=== PATIENT | male | born 1980 | race Caucasian/White ===

== ENCOUNTER 2017-06-04 13:46 | Emergency (ER) | payer OTHER ==
[2017-06-04 14:17] VITALS: BP 118/75
[2017-06-04] MEDS ORDERED: Penicillin VK TAB* 250 MG PO ONE (14:57)
--- NOTE | 2017-06-04 15:21 | UC ---
UC Dental HPI - HPI Summary HPI Summary: 36 yo male with a 2 day hx of dental pain and swelling no f/c good pain control with ibuprofen - History of Current Complaint Chief Complaint: UCDentalProblem Stated Complaint: DENTAL PAIN Time Seen by Provider: 06/04/17 14:47 Hx Obtained From: Patient Onset/Duration: Gradual Onset, Lasting Hours Severity: Moderate Pain Intensity: 4 Pain Scale Used: 0-10 Numeric Aggravating: Heat, Cold, Chewing Alleviating: OTC Meds Related History: Previous Dental Care on Same Tooth, Swelling - Allergies/Home Medications Allergies/Adverse Reactions: Allergies Allergy/AdvReac Type Severity Reaction Status Date / Time Nickel Allergy Rash Verified 06/04/17 14:13 PMH/Surg Hx/FS Hx/Imm Hx Previously Healthy: Yes - Surgical History Surgical History: None - Family History Known Family History: Positive: Diabetes, Other - CA - Social History Alcohol Use: Occasionally Substance Use Type: None Smoking Status (MU): Heavy Every Day Tobacco Smoker Type: Cigarettes Amount Used/How Often: 1/2 - 1 PPD Review of Systems Constitutional: Negative Skin: Negative Eyes: Negative ENT: Dental Pain Respiratory: Negative Cardiovascular: Negative Gastrointestinal: Negative Genitourinary: Negative Motor: Negative Neurovascular: Negative Musculoskeletal: Negative Neurological: Negative Psychological: Negative All Other Systems Reviewed And Are Negative: Yes Physical Exam Triage Information Reviewed: Yes Appearance: Well-Appearing, No Pain Distress, Well-Nourished Vital Signs: Initial Vital Signs Temp 97.7 F 06/04/17 14:14 Pulse 71 06/04/17 14:14 Resp 16 06/04/17 14:14 BP 118/75 06/04/17 14:14 Pulse Ox 100 06/04/17 14:14 Vital Signs Reviewed: Yes Eyes: Positive: Conjunctiva Clear ENT: Positive: Hearing grossly normal. Negative: Nasal congestion, Nasal drainage, Tonsillar exudate, Trismus, Muffled/hoarse voice Neck: Positive: Supple, Nontender, No Lymphadenopathy Respiratory: Positive: Lungs clear, Normal breath sounds, No respiratory distress Cardiovascular: Positive: RRR, No Murmur Abdomen Description: Positive: Nontender, No Organomegaly. Negative: CVA Tenderness (R), CVA Tenderness (L) Musculoskeletal: Positive: ROM Intact, No Edema Neurological: Positive: Alert Psychological Exam: Normal Skin Exam: Normal Dental Complaint Course/Dx - Differential Dx/Diagnosis Provider Diagnoses: dental abscess Discharge - Discharge Plan Condition: Stable Disposition: HOME Prescriptions: Penicillin VK 500 MG TAB(NF) [Penicillin VK 500 mg Tab] 500 mg PO QID #28 tab Patient Education Materials: Dental Abscess (ED) Referrals: Karen WELLS,Greg Osei [Physician [employer]] - Additional Instructions: continue ibuprofen see dentist tomorrow as planned Images Dental: 1 - tender/swollen
== END 2017-06-04 15:15 | disposition home or self-care (01) ==
LOC: UCCORT 13:46
DX: K04.7 Periapical abscess without sinus (principal); F17.210 Nicotine dependence, cigarettes, uncomplicated
CPT/HCPCS: 99212; A9270-GY; G0463

== ENCOUNTER 2018-03-24 09:45 | Emergency (ER) | payer OTHER ==
[2018-03-24 10:01] VITALS: BP 140/66
--- NOTE | 2018-03-24 10:24 | UC ---
Throat Pain/Nasal [place] HPI - HPI Summary HPI Summary: Throat discomfort for about 10 days or so. Right in the middle of this he was on augmentin for diverticulitis. No fevers or congestion or cough. he is a smoker. - History of Current Complaint Chief Complaint: UCGeneralIllness Stated Complaint: THROAT COMP Time Seen by Provider: 03/24/18 10:12 Hx Obtained From: Patient Onset/Duration: Gradual Onset, Lasting Weeks Severity: Moderate Pain Intensity: 2 Cough: None Associated Signs & Symptoms: Positive: Dysphagia, FB Sensation. Negative: Hoarseness, Sinus Discomfort, Nasal Discharge, Fever, Vomiting, Rash Related History: Smoking - Epiglottits Risk Factors Epiglottis Risk Factors: Negative - Allergies/Home Medications Allergies/Adverse Reactions: Allergies Allergy/AdvReac Type Severity Reaction Status Date / Time nickel Allergy Rash Verified 03/24/18 09:59 PMH/Surg Hx/FS Hx/Imm Hx Previously Healthy: No - smoker. - Surgical History Surgical History: None - Family History Known Family History: Positive: Diabetes, Other - CA - Social History Occupation: Employed Full-time Alcohol Use: Rare Substance Use Type: None Smoking Status (MU): Heavy Every Day Tobacco Smoker Type: Cigarettes Amount Used/How Often: 1/2 - 1 PPD Review of Systems ENT: Sore Throat All Other Systems Reviewed And Are Negative: Yes Physical Exam Triage Information Reviewed: Yes Appearance: Well-Appearing, No Pain Distress, Well-Nourished Vital Signs: Initial Vital Signs Temp 97.7 F 03/24/18 09:56 Pulse 63 03/24/18 09:56 Resp 16 03/24/18 09:56 BP 140/66 03/24/18 09:56 Pulse Ox 98 03/24/18 09:56 Vital Signs Reviewed: Yes Eyes: Positive: Conjunctiva Clear, Conjunctiva Inflamed ENT: Positive: Normal ENT inspection, Pharynx normal, Pharyngeal erythema, TMs normal, Uvula midline. Negative: Nasal congestion, TM bulging, TM dull, TM red , Tonsillar swelling, Tonsillar exudate, Trismus, Muffled voice, Hoarse voice, Dental tenderness, Sinus tenderness Neck: Positive: Supple, Nontender, No Lymphadenopathy. Negative: Nuchal Rigidity Respiratory Exam: Other Respiratory: Positive: Lungs clear, Normal breath sounds, No respiratory distress, No accessory muscle use. Negative: Respiratory distress, Decreased breath sounds, Accessory muscle use, Crackles, Rhonchi, Stridor Cardiovascular: Positive: No Murmur, Pulses Normal, Brisk Capillary Refill Abdomen Description: Positive: No Organomegaly, Soft. Negative: Distended, Guarding Musculoskeletal: Positive: Strength Intact, ROM Intact, No Edema Neurological: Positive: Alert, Muscle Tone Normal. Negative: Fatigued Psychological: Positive: Age Appropriate Behavior Skin: Positive: rashes Throat Pain/Nasal Course/Dx - Differential Dx/Diagnosis Provider Diagnoses: sore throat Discharge - Sign-Out/Discharge Documenting (check all that apply): Discharge/Admit/Transfer - Discharge Plan Condition: Good Disposition: HOME Prescriptions: Dexamethasone TAB* [Decadron TAB*] 8 mg PO DAILY #6 tab Patient Education Materials: Pharyngitis (ED) Referrals: Myron Perez PA [Primary Care Provider] - - Billing Disposition and Condition Condition: GOOD Disposition: HOME
== END 2018-03-24 10:25 | disposition home or self-care (01) ==
LOC: UCCORT 09:45
DX: J02.9 Acute pharyngitis, unspecified (principal); F17.210 Nicotine dependence, cigarettes, uncomplicated; Z91.048 Other nonmedicinal substance allergy status
CPT/HCPCS: 99212; G0463

== ENCOUNTER 2019-11-28 10:41 | Emergency (ER) | payer OTHER ==
[2019-11-28 12:02] VITALS: BP 134/66
--- NOTE | 2019-11-28 13:16 | UC ---
Knee Pain HPI - HPI Summary HPI Summary: 39-year-old male comes in with a chief complaint of right knee pain. 4 days ago patient made a quick twist and turn move on his right knee while weightbearing and he felt a pop and pain. He's had pain since then although the pain has decreased over time. He's had another episode where it did make a pop and he squatted down. Denies any laxity. Every once while he feels a click in the knee. He's been the ibuprofen which does help with the pain. - History of Current Complaint Chief Complaint: UCLowerExtremity Stated Complaint: RIGHT KNEE INJURY Time Seen by Provider: 11/28/19 13:15 Pain Intensity: 2 - Allergies/Home Medications Allergies/Adverse Reactions: Allergies Allergy/AdvReac Type Severity Reaction Status Date / Time nickel Allergy Rash Verified 11/28/19 11:57 Home Medications: Home Medications Ciprofloxacin TAB* [Cipro 500 MG TAB*] 500 mg PO BID 11/28/19 [History Confirmed 11/28/19] Ibuprofen TAB* [Motrin TAB* 600 MG] 600 mg PO Q6H PRN 11/28/19 [History Confirmed 11/28/19] metroNIDAZOLE * [Flagyl] 500 mg PO Q8H 11/28/19 [History Confirmed 11/28/19] PMH/Surg Hx/FS Hx/Imm Hx Previously Healthy: Yes - Surgical History Surgical History: None - Family History Known Family History: Positive: Diabetes, Other - CA - Social History Alcohol Use: Occasionally Substance Use Type: Marijuana Substance Use Comment - Amount & Last Used: Occasionally Smoking Status (MU): Heavy Every Day Tobacco Smoker Type: Cigarettes Amount Used/How Often: 1/2 - 1 PPD Length of Time of Smoking/Using Tobacco: Since Age 19 Review of Systems All Other Systems Reviewed And Are Negative: Yes Constitutional: Positive: Negative Skin: Positive: Negative Eyes: Positive: Negative ENT: Positive: Negative Respiratory: Positive: Negative Cardiovascular: Positive: Negative Gastrointestinal: Positive: Negative Motor: Positive: Negative Neurovascular: Positive: Negative Musculoskeletal: Positive: Other: - SEE HPI Neurological: Positive: Negative Psychological: Positive: Negative Is Patient Immunocompromised?: No Physical Exam Triage Information Reviewed: Yes Appearance: Well-Appearing, No Pain Distress, Well-Nourished Vital Signs: Initial Vital Signs Temp 98.4 F 11/28/19 11:53 Pulse 72 11/28/19 11:53 Resp 16 11/28/19 11:53 BP 134/66 11/28/19 11:53 Pulse Ox 100 11/28/19 11:53 Vital Signs Reviewed: Yes Eye Exam: Normal Eyes: Positive: Conjunctiva Clear Neck: Positive: Supple Respiratory: Positive: No respiratory distress Musculoskeletal: Positive: Other: - Right knee examination; I do not appreciate any effusion. It is stable to exam. Is nontender to palpation. No tenderness with movement of the patella. Positive medial Carroll's. Negative lateral Carroll's. Neurological: Positive: Alert Psychological: Positive: Age Appropriate Behavior Skin Exam: Normal Knee Pain Course/Dx - Course Course Of Treatment: Jig Borer: Reji Lancaster F, ([id number]) Nat Instructor: ELEAZAR ( NUANCE) Report Date: 11/28/2019 12:25:00 Report Status: Final ====== Start of Report Content Patient Name: NGUYEN ORTIZ I Medical Record# : [id number] Ordering Physician: Bakari Fuentes MD Acct.#: [id number] : 1980 Age: 39 Sex: M Location: [facility] Exam Date: 11/28/19 1202 ADM Status: REG ER Order Information: KNEE RIGHT 4+ VWS Accession Number: [id number] CPT: 79387 INDICATION: Right knee pain. TECHNIQUE: 4 views of the right knee were obtained. FINDINGS: The bones are in normal alignment. No joint effusion or fracture is seen. Joint spaces appear maintained. IMPRESSION: NO EVIDENCE FOR FRACTURE. ___ <Electronically signed by Reji Lancaster MD in OV> 11/28/19 1222 Dictated By: Reji Lancaster MD Dictated Date/Time: 11/28/19 1221 Transcribed Date/Time: 11/28/19 1221 Copy to: CC:Joann DURÁN Physicians; Myron NOGUERA; Bakari Fuentes MD Imaging - [facility] Imaging - [facility] Imaging - [facility] [address] [place], [place] [address] [place] [id number] [place] [id number] ph ([phone]) ph ([phone] ph ([phone]) End of Report Content I discussed the x-rays with the patient. Patient's exam and history is most consistent with a medial meniscal injury. Plan is ice anti-inflammatories neoprene brace of helpful elevation and rest and follow-up with orthopedics or sports medicine. - Differential Dx/Diagnosis Provider Diagnosis: Right knee pain Discharge ED - Sign-Out/Discharge Documenting (check all that apply): Patient Departure All imaging exams completed and their final reports reviewed: Yes - Discharge Plan Condition: Stable Disposition: HOME Patient Education Materials: Knee Pain (ED) Referrals: Myron Perez PA [Primary Care Provider] - Luis Fernando Camp MD [Medical Doctor] - [facility] [Provider Group] Additional Instructions: FOLLOW UP WITH ORTHOPEDICS, DR CAMP, OR SPORTS MEDICINE. GET REEVALUATED SOONER IF NOT IMPROVING OR WORSE OR ANY QUESTIONS OR CONCERNS. - Billing Disposition and Condition Condition: STABLE Disposition: Home
== END 2019-11-28 13:34 | disposition home or self-care (01) ==
LOC: UCCORT 10:41
DX: M25.561 Pain in right knee (principal); F17.210 Nicotine dependence, cigarettes, uncomplicated; Z91.09 Other allergy status, other than to drugs and biological substances
CPT/HCPCS: 99211; G0463